=== PATIENT | male | born 1980 | race Caucasian/White ===

== ENCOUNTER 2020-05-03 20:24 | Inpatient (IN) | payer BC, MEDICAID, OTHER ==
[~2020-05-03] VITALS: Ht 182.9 cm; Wt 104.3 kg
[2020-05-03 22:03] LABS: Basophils # (auto) 0 10 ^3/uL (0-0.2); Basophils % (auto) 0.5 % (0.0-2.0); Eosinophils # (auto) 0.2 10 ^3/uL (0-0.8); Eosinophils % (auto) 2.3 % (0.0-7.0); Hematocrit 44.6 % (41.0-53.0); Hemoglobin 14.9 g/dL (13.5-17.5); Lymphocytes # (auto) 2.1 10 ^3/uL (0.4-5.4); Lymphocytes % (auto) 21.8 % (10.0-50.0); Mean Corpuscular Hemoglobin 27.9 pg (28.0-32.0); Mean Corpuscular Hgb Conc. 33.5 g/dL (32.0-36.0); Mean Corpuscular Volume 83.4 fL (80.0-100.0); Monocytes # (auto) 0.6 10 ^3/uL (0-1.3); Monocytes % (auto) 6.7 % (0.0-12.0); Neutrophils # (auto) 6.6 10 ^3/uL (1.6-8.6); Neutrophils % (auto) 68.7 % (37.0-80.0); Nucleated Red Blood Cells % 0.1 %; Platelet Count (auto) 308 10^3/uL (140-450); Red Blood Cells 5.35 10^6/uL (4.5-5.90); Red Cell Distribution Width 14.6 % (11.8-14.3); White Blood Cell 9.6 10^3/uL (4.4-10.8)
[2020-05-03 22:20] LABS: INR 0.92 (0.9-1.15); Partial Thromboplastin Time 26.1 sec (23.0-31.2)
[2020-05-03 22:21] LABS: Albumin 3.8 g/dL (3.4-5.0); BUN/Creatinine Ratio 13.1; Calcium 8.6 mg/dL (8.5-10.1); Potassium 4.1 mmol/L (3.5-5.1)
[2020-05-03 22:26] LABS: Bilirubin, Total 0.2 mg/dL (0.2-1.0)
[2020-05-04] MEDS ORDERED: ASPirin 81 mg TAB PO ONE (04:45)
[2020-05-04] MEDS ORDERED: ACETAMINOPHEN 325 MG TAB PO PRN (07:00)
[2020-05-04] MEDS ORDERED: ONDANSETRON HCL 4 MG/2 ML VIAL IV PRN (07:00)
[2020-05-04] MEDS ORDERED: MORPHINE SULFATE 4 MG/ML SYR/VIAL IV PRN (07:00)
[2020-05-04] MEDS ORDERED: MORPHINE SULF INJ 2 MG/ML SYRINGE 1ML IV PRN (07:00)
[2020-05-04] MEDS ORDERED: HYDROcodone-ACET 5/325MG TAB PO PRN (07:00)
[2020-05-04] MEDS ORDERED: NITROGLYCERIN 0.4 MG SL TAB SL PRN (07:00)
[2020-05-04] MEDS ORDERED: DOCUSATE SOD 100 MG CAP PO PRN (07:00)
[2020-05-04 08:25] VITALS: BP 154/93
[2020-05-04 08:46] LABS: Basophils # (auto) 0 10 ^3/uL (0-0.2); Basophils % (auto) 0.5 % (0.0-2.0); Eosinophils # (auto) 0.2 10 ^3/uL (0-0.8); Eosinophils % (auto) 2.3 % (0.0-7.0); Hematocrit 46.7 % (41.0-53.0); Hemoglobin 15.3 g/dL (13.5-17.5); Lymphocytes % (auto) 24.5 % (10.0-50.0); Mean Corpuscular Hemoglobin 27.5 pg (28.0-32.0); Mean Corpuscular Hgb Conc. 32.8 g/dL (32.0-36.0); Mean Corpuscular Volume 83.9 fL (80.0-100.0); Monocytes # (auto) 0.6 10 ^3/uL (0-1.3); Monocytes % (auto) 7.6 % (0.0-12.0); Neutrophils # (auto) 5.2 10 ^3/uL (1.6-8.6); Neutrophils % (auto) 65.1 % (37.0-80.0); Nucleated Red Blood Cells % 0.1 %; Platelet Count (auto) 284 10^3/uL (140-450); Red Blood Cells 5.57 10^6/uL (4.5-5.90); Red Cell Distribution Width 14.7 % (11.8-14.3)
[2020-05-04 09:00] LABS: Anion Gap 6 (5-15); Blood Urea Nitrogen 14 mg/dL (7-18); Calcium 9.3 mg/dL (8.5-10.1); Carbon Dioxide 28 mmol/L (21-32); Chloride 105 mmol/L (98-107); Glucose 117 mg/dL (74-106); Potassium 4.6 mmol/L (3.5-5.1); Sodium 139 mmol/L (136-145)
[2020-05-04 09:05] LABS: Alanine Aminotransferase 57 U/L (16-61); Alkaline Phosphatase 106 U/L (45-117); Aspartate Aminotransferase 23 U/L (15-37); BUN/Creatinine Ratio 14.7; Bilirubin, Total 0.4 mg/dL (0.2-1.0); Cholesterol 293 mg/dL (< 200); GFR African American 115 mL/min; GFR Non-African American 95 mL/min; HDL Cholesterol 42 mg/dL (40-59); Triglycerides 645 mg/dL (< 150)
[2020-05-04] MEDS ORDERED: ASCORBIC ACID 500 MG TAB PO SCH (10:00)
[2020-05-04] MEDS ORDERED: ASPirin 81 mg TAB PO SCH (10:00)
[2020-05-04] MEDS ORDERED: MULTIPLE VITAMIN TAB PO SCH (10:00)
[2020-05-04] MEDS ORDERED: ENOXAPARIN SOD 40 MG/0.4 ML SYRINGE SC SCH (10:00)
[2020-05-04] MEDS ORDERED: ZINC SULFATE 220mg CAP or TAB PO SCH (10:00)
[2020-05-04] MEDS ORDERED: FAMOTIDINE 20 MG TAB PO SCH (10:00)
[2020-05-04] MEDS ORDERED: SODIUM CHLOR 0.9% PF (SALINE LOCK) 10ML VIAL/SYR IV SCH (14:00)
[2020-05-04] MEDS ORDERED: ATORVASTATIN 20 MG TAB PO SCH (22:00)
== END 2020-05-04 10:40 | disposition left against medical advice (07) | DRG 282 ==
LOC: ER 20:24 → TELE 20:25
PROVIDERS: ADMIT Nurse Practitioner Family; ATTEND Family Medicine
DX: I21.4 Non-ST elevation (NSTEMI) myocardial infarction (principal); E78.00 Pure hypercholesterolemia, unspecified; E78.1 Pure hyperglyceridemia; Z20.828 Contact with and (suspected) exposure to other viral communicable diseases
CPT/HCPCS: 36415; 71045; 80053; 80061; 83735; 83880; 84484; 85025; 85610; 85730; 93005; 96372; G0378

== ENCOUNTER 2020-07-24 07:30 | Day surgery (SDC) | payer BC ==
[~2020-07-24] VITALS: Ht 182.9 cm; Wt 113.4 kg
[~2020-07-24 07:30] MED LIST: ASPI-231 PO; ATOR40TA52 PO; METO25TA5 PO
[2020-07-24] MEDS ORDERED: IODIXANOL 320MG/ML 100ML BTL IV ONE (07:52)
[2020-07-24] MEDS ORDERED: LIDOCAINE 2%HCL (LOCAL ANESTH.) INJ 20ML MDV ONE (07:52)
[2020-07-24] MEDS ORDERED: fentaNYL CITRATE 100 MCG/2 ML VL ONE (08:21)
[2020-07-24] MEDS ORDERED: SODIUM CHL 0.9% 50 ML ONE ×2 (08:21→09:19)
[2020-07-24] MEDS ORDERED: MIDAZOLAM HCL 1MG/1ML-2 ML VIAL ONE (08:21)
[2020-07-24] MEDS ORDERED: ANGIOMAX 250 MG VIAL IV ONE ×2 (08:21→09:19)
[2020-07-24] MEDS ORDERED: HEPARIN SODIUM (PORCINE) 5000 UNITS/ML 1ML VIAL ONE (08:22)
[2020-07-24] MEDS ORDERED: VERAPAMIL 2.5MG/ML INJ 2ML VIAL IV ONE (08:22)
[2020-07-24] MEDS ORDERED: TICAGRELOR 90 MG TAB ONE (09:16)
[2020-07-24] MEDS ORDERED: ASPirin 325 MG TAB ONE (09:16)
[2020-07-24] MEDS ORDERED: HYDROcodone-ACET 5/325MG TAB PO PRN (10:15)
[2020-07-24] MEDS ORDERED: NITROGLYCERIN 0.4 MG SL TAB SL PRN (10:15)
[2020-07-24] MEDS ORDERED: ONDANSETRON HCL 4 MG/2 ML VIAL IV PRN (10:15)
[2020-07-24] MEDS ORDERED: ACETAMINOPHEN 500 MG TAB PO PRN (10:15)
== END 2020-07-24 14:44 | disposition home or self-care (01) ==
LOC: CATH 07:30
PROVIDERS: ATTEND Internal Medicine Cardiovascular Disease
DX: R94.39 Abnormal result of other cardiovascular function study (principal); I25.10 Atherosclerotic heart disease of native coronary artery without angina pectoris; E78.5 Hyperlipidemia, unspecified; Z79.82 Long term (current) use of aspirin; Z20.822 Contact with and (suspected) exposure to COVID-19; Z98.890 Other specified postprocedural states; Z79.899 Other long term (current) drug therapy; Z68.33 Body mass index [BMI] 33.0-33.9, adult
CPT/HCPCS: 93454; C1725; C1769; C1874; C1887; C1894; C9600; J0583; J1644; J2250; J3010; J7030; Q9967; U0003; 99152; 99153